=== PATIENT | female | born 1980 | race Hispanic/Latino ===

== ENCOUNTER 2018-03-02 07:52 | Emergency (ER) | payer OTHER ==
[~2018-03-02] VITALS: Ht 157.5 cm; Wt 81.7 kg
[~2018-03-02 07:52] MED LIST: EXPECTA PRENAT1 EACH PO; NORCO 5-325 TA1 EACH PO; TUMS DUAL ACTI1 EACH PO; TYLENOL325 MG PO
[2018-03-02] MEDS ORDERED: NORCO 5-325 TA1 EACH PO (08:23)
[2018-03-02] MEDS ORDERED: IBUPROFEN600 MG PO (08:23)
== END 2018-03-02 08:30 | disposition home or self-care (01) ==
LOC: ED 07:52
DX: S92.252A Displaced fracture of navicular [scaphoid] of left foot, initial encounter for closed fracture (principal); X50.9XXA Other and unspecified overexertion or strenuous movements or postures, initial encounter
CPT/HCPCS: 73630; 99283

== ENCOUNTER 2019-07-01 10:09 | Inpatient (IN) | payer OTHER ==
[~2019-07-01] VITALS: Ht 152.4 cm; Wt 91.4 kg
[~2019-07-01 10:09] MED LIST changes: +IBUPROFEN600 MG PO
--- NOTE | 2019-07-01 14:19 | PR ---
[facility] [address] [facility] [place], [place] [address] Signed Progress Notes IP Datetime Report Generated by CPGabriela: 07/01/2019 14:19 PROGRESS NOTES: [id number] Other Impressions: Hypotensive Episode Other Procedures: IV fluids VITAL SIGNS: [id number] Vital Signs: Reviewed VS Notable Details: elevated BP EXAM: [id number] Dilatation: 2.0 Effacement: 0 Station: -3 Uterine Contractions: every 4-6 minutes, mild MEMBRANES: [id number] Membrane Status: Intact Comments: Patient had hypotensive episode to 88/51, feeling like would pass out, during MagSO4 bolus. MagSO4 stopped, IV bolus given, with patient feeling better and BP now normal Will continue with CYtotec INduction, when stable, but hold MagSO4 for now. Fetus A: [id number] FHR Baseline: 140 Variability: Moderate 6-25bpm Accelerations: 15X15 Decelerations: Variable Presentation: Vertex Fetus B: [id number] Signing Physician: Israel Gore MD Copies: ~ *Electronically Signed* 07/01/19 1419 ISRAEL GORE MD PATIENT NAME: THIERNO CUMMINS PROGRESS NOTE DATE OF : 84 PHYSICIAN: ISRAEL GORE MD RPT #: [id number] REPORT IS CONFIDENTIAL AND NOT TO BE RELEASED WITHOUT AUTHORIZATION
--- NOTE | 2019-07-01 16:48 | PR ---
[facility] [address] [place], [place] [address] Signed Progress Notes IP Datetime Report Generated by CPN: 07/01/2019 16:48 PROGRESS NOTES: [id number] Impression: Gest. HTN/PreEclampsia/Eclampsia Other Impressions: Hypotensive Episode Other Procedures: IV fluids Other Plans: MagSO4 VITAL SIGNS: [id number] Vital Signs: Reviewed; Within Normal Limits VS Notable Details: elevated BP EXAM: [id number] Dilatation: 2.0 Effacement: 0 Station: -3 Uterine Contractions: every 3-5 minutes MEMBRANES: [id number] Membrane Status: Intact Comments: Patient without compmlalint at this time. Discussed with patient; restarting MagSO4 since doubt hypotension was due to Mag and with severe preeclampsia, has increased risk of eclampsia. Questions answered. Watch BP closely Fetus A: [id number] FHR Baseline: 150 Variability: Moderate 6-25bpm Accelerations: 15X15 Decelerations: Variable Presentation: Vertex Fetus B: [id number] Signing Physician: Rosy Gore MD Copies: ~ *Electronically Signed* 07/01/19 1648 ROSY GORE MD PATIENT NAME: THIERNO CUMMINS PROGRESS NOTE DATE OF : 84 PHYSICIAN: ROSY GORE MD RPT #: [id number] REPORT IS CONFIDENTIAL AND NOT TO BE RELEASED WITHOUT AUTHORIZATION
--- NOTE | 2019-07-02 07:14 | PR ---
[facility] [address] [facility] [place], [place] [address] Signed Progress Notes IP Datetime Report Generated by CPGabriela: 07/02/2019 07:14 PROGRESS NOTES: [id number] Impression: Slow Progression of Labor Other Impressions: Hypotensive Episode Other Procedures: IV fluids Plan: Continue present management; Anticipate Vaginal Delivery Other Plans: MagSO4 VITAL SIGNS: [id number] Vital Signs: Reviewed; Within Normal Limits VS Notable Details: elevated BP EXAM: [id number] Dilatation: 3.0 Effacement: 50 Station: -3 Uterine Contractions: every 3-5 minutes MEMBRANES: [id number] Membrane Status: Intact Comments: Cytotec x6 (#6 placed aobut 30 minutes ago), on MagSO4, with some nausea, feeling warm, but otherwise doing well. Plan recheck in couple hours to see if can AROM Fetus A: [id number] FHR Baseline: 145 Variability: Moderate 6-25bpm Accelerations: 15X15 Decelerations: Variable Presentation: Vertex Fetus B: [id number] Signing Physician: Israel Gore MD Copies: ~ *Electronically Signed* 07/02/19 0714 ISRAEL GORE MD PATIENT NAME: THIERNO CUMMINS PROGRESS NOTE DATE OF : 84 PHYSICIAN: ISRAEL GORE MD RPT #: [id number] REPORT IS CONFIDENTIAL AND NOT TO BE RELEASED WITHOUT AUTHORIZATION
--- NOTE | 2019-07-02 09:14 | PR ---
[facility] [place] [facility] [address] [facility] [place], [place] [address] Signed Progress Notes IP Datetime Report Generated by CPN: 07/02/2019 09:14 PROGRESS NOTES: [id number] Impression: Normal progression of labor; Gest. HTN/PreEclampsia/Eclampsia Other Impressions: Hypotensive Episode Procedures: Artificial ROM Other Procedures: IV fluids Plan: Continue present management; Anticipate Vaginal Delivery Other Plans: MagSO4 VITAL SIGNS: [id number] Vital Signs: Reviewed; Within Normal Limits VS Notable Details: elevated BP EXAM: [id number] Dilatation: 4.0 Effacement: 50 Station: -3 Uterine Contractions: every 2-5 minutes MEMBRANES: [id number] Membrane Status: Ruptured Amniotic Fluid Color: Clear ROM Note: AROM with small amount clear fluid Comments: Just beginning to feel contractions, would like Epidural later - ordered. Fetus A: [id number] FHR Baseline: 135 Variability: Moderate 6-25bpm Accelerations: 15X15 Decelerations: Variable Presentation: Vertex Fetus B: [id number] Signing Physician: Rosy Gore MD Copies: ~ *Electronically Signed* 07/02/19 0914 ROSY GORE MD PATIENT NAME: THIERNO CUMMINS PROGRESS NOTE DATE OF : 84 PHYSICIAN: ROSY GORE MD RPT #: [id number] REPORT IS CONFIDENTIAL AND NOT TO BE RELEASED WITHOUT AUTHORIZATION
--- NOTE | 2019-07-02 12:23 | PR ---
[facility] [address] [facility] [place], [place] [address] Signed Progress Notes IP Datetime Report Generated by CPN: 07/02/2019 12:23 PROGRESS NOTES: [id number] Impression: Normal progression of labor Other Impressions: Hypotensive Episode Procedures: Artificial ROM Other Procedures: IV fluids Plan: Continue present management; Anticipate Vaginal Delivery Other Plans: MagSO4 VITAL SIGNS: [id number] Vital Signs: Reviewed; Within Normal Limits VS Notable Details: elevated BP EXAM: [id number] Dilatation: 8.0 Effacement: 90 Station: -3 Uterine Contractions: every 3-5 minutes MEMBRANES: [id number] Membrane Status: Ruptured Amniotic Fluid Color: Clear ROM Note: AROM with small amount clear fluid Comments: Comfortable with Epidural. BP's stable, continuing MagSO4. Continue monitoring Fetus A: [id number] FHR Baseline: 130 Variability: Moderate 6-25bpm Accelerations: 10X10 Decelerations: Early Presentation: Vertex Fetus B: [id number] Signing Physician: Rosy Gore MD Copies: ~ *Electronically Signed* 07/02/19 1223 ROSY GORE MD PATIENT NAME: THIERNO CUMMINS PROGRESS NOTE DATE OF : 84 PHYSICIAN: ROSY GORE MD RPT #: [id number] REPORT IS CONFIDENTIAL AND NOT TO BE RELEASED WITHOUT AUTHORIZATION
--- NOTE | 2019-07-02 14:37 | PR ---
[facility] [address] [facility] [place], [place] [address] Signed Progress Notes IP Datetime Report Generated by CPN: 07/02/2019 14:37 PROGRESS NOTES: [id number] Impression: Normal progression of labor Other Impressions: Hypotensive Episode Procedures: Artificial ROM Other Procedures: IV fluids Plan: Continue present management; Anticipate Vaginal Delivery Other Plans: MagSO4 VITAL SIGNS: [id number] Vital Signs: Reviewed; Within Normal Limits VS Notable Details: elevated BP EXAM: [id number] Dilatation: 10.0 Effacement: 100 Station: 0 Uterine Contractions: every 3-4 minutes MEMBRANES: [id number] Membrane Status: Ruptured Amniotic Fluid Color: Clear ROM Note: AROM with small amount clear fluid Comments: Comfortable with Epidural, will start pushing Fetus A: [id number] FHR Baseline: 135 Variability: Moderate 6-25bpm Accelerations: 10X10 Decelerations: Early Presentation: Vertex Fetus B: [id number] Signing Physician: Israel Gore MD Copies: ~ *Electronically Signed* 07/02/19 1437 ISRAEL GORE MD PATIENT NAME: DOUG CUMMINSLorie NEELY PROGRESS NOTE DATE OF : 84 PHYSICIAN: ISRAEL GORE MD RPT #: [id number] REPORT IS CONFIDENTIAL AND NOT TO BE RELEASED WITHOUT AUTHORIZATION
--- NOTE | 2019-07-02 16:07 | PR ---
[facility] [address] [facility] [place], [place] [address] Signed Progress Notes IP Datetime Report Generated by CPN: 07/02/2019 16:07 PROGRESS NOTES: [id number] Impression: Normal progression of labor Other Impressions: Hypotensive Episode Procedures: Artificial ROM Other Procedures: IV fluids Plan: Continue present management Other Plans: MagSO4 VITAL SIGNS: [id number] Vital Signs: Reviewed; Within Normal Limits VS Notable Details: elevated BP EXAM: [id number] Dilatation: 10.0 Effacement: 100 Station: 0 Uterine Contractions: every 3 minutes MEMBRANES: [id number] Membrane Status: Ruptured Amniotic Fluid Color: Clear ROM Note: AROM with small amount clear fluid Comments: Continuing to push well, but slow progress. Will continue pushing. Fetus A: [id number] FHR Baseline: 135 Variability: Moderate 6-25bpm Accelerations: 15X15 Decelerations: Early Presentation: Vertex Fetus B: [id number] Signing Physician: Rosy Gore MD Copies: ~ *Electronically Signed* 07/02/19 1607 ROSY GORE MD PATIENT NAME: THIERNO CUMMINS CHIN PROGRESS NOTE DATE OF : 84 PHYSICIAN: ROSY GORE MD RPT #: [id number] REPORT IS CONFIDENTIAL AND NOT TO BE RELEASED WITHOUT AUTHORIZATION
--- NOTE | 2019-07-02 18:59 | PR ---
[facility] [address] [place], [place] [address] Signed PP Progress Notes Datetime Report Generated by CPN: 07/02/2019 18:58 SUBJECTIVE: [id number] Pain: Within normal limits Nausea/Vomiting: Denies Vital Signs: [id number] Vital Signs: Reviewed Notable Details: hypotension EXAM: [id number] Cardiovascular: Normal Respiratory: Normal Abdomen/Uterus: Normal Lochia: Normal Vulva/Perineum: Normal Extremities: Normal Exam Comments: Mag Level: 5.7 Hgb/Hct = 10.0/29.4 FS BS = 138 IMPRESSION/PLAN/PROCEDURES: [id number] Other Impression: Hypotension Progress Notes: 2 hr PP, patient had feeling of cold then warm, then felt like would pass out. No chest pain, no shortness of breath, vaginal bleeding has been normal. BP high temporarily then dropped, with normal pulse. No loss of consciousness. Rapid Response Team called: MagSO4 stopped, Bolus of IV fluids given, IV Ephedrin given with patient beginning to feel better and BP slowly rising to normal levels and continued normal pulse. Will stop MagSO4 and watch BP. Continue IV fluid, add 20 units Pitocin to 1000 ml. SCD's and Abdominal binder. Discussed with patient; explained risks vs benefits of MagSO4, feel not Signing Physician: Rosy Gore MD Copies: ~ *Electronically Signed* 07/02/19 3117 ROSY GORE MD PATIENT NAME: THIERNO CUMMINS PROGRESS NOTE DATE OF : 84 PHYSICIAN: ROSY GORE MD RPT #: [id number] REPORT IS CONFIDENTIAL AND NOT TO BE RELEASED WITHOUT AUTHORIZATION
--- NOTE | 2019-07-02 21:44 | EKG ---
[facility] [address] [facility] [place], [place] [address] Signed Normal sinus rhythm Normal ECG No previous ECGs available Confirmed by CHRISTA SRINIVASAN DO ([id number]) on 07/02/2019 9:44:50 PM Electronically Signed By: CHRISTA SRINIVASAN DO 07/02/19 2144 PATIENT NAME: THIERNO CUMMINS Electrocardiogram DATE OF : 84 PHYSICIAN: CHRISTA SRINIVASAN DO REPORT #: [id number] REPORT IS CONFIDENTIAL AND NOT TO BE RELEASED WITHOUT AUTHORIZATION
--- NOTE | 2019-07-02 22:38 | PR ---
[facility] [address] [facility] [place], [place] [address] Signed PP Progress Notes Datetime Report Generated by CPN: 07/02/2019 22:38 SUBJECTIVE: [id number] Pain: Within normal limits Nausea/Vomiting: Denies Vital Signs: [id number] Vital Signs: Reviewed Notable Details: T = 101.7 BP 140-160's /80-90's EXAM: [id number] Cardiovascular: Normal Respiratory: Normal Abdomen/Uterus: Normal Lochia: Normal Vulva/Perineum: Normal Extremities: Normal Exam Comments: Mag Level: 5.7 Hgb/Hct = 10.0/29.4 FS BS = 138 good urine output IMPRESSION/PLAN/PROCEDURES: [id number] Other Impression: PP Fever, ? Endometritis Plan: Antibiotic therapy Other Plans: Gentamycin _ Clindamycin IV Progress Notes: Feeling better, but now elevated temp, but no increased abdominal pain, shortness of breath, cough, calf tenderness, foul smelling discharge. Urine for C_S Will start antibiotics and oral Labetalol, continue monitoring Signing Physician: Rosy Gore MD Copies: ~ *Electronically Signed* 07/02/19 8742 ROSY GORE MD PATIENT NAME: THIERNO CUMMINS PROGRESS NOTE DATE OF : 84 PHYSICIAN: ROSY GORE MD RPT #: [id number] REPORT IS CONFIDENTIAL AND NOT TO BE RELEASED WITHOUT AUTHORIZATION
--- NOTE | 2019-07-03 07:32 | PR ---
[facility] [address] [place] [facility] [place] [address] Signed PP Progress Notes Datetime Report Generated by CPGabriela: 07/03/2019 07:32 SUBJECTIVE: [id number] Pain: Within normal limits Nausea/Vomiting: Denies Vital Signs: [id number] Vital Signs: Reviewed; Within Normal Limits Notable Details: T = 101.7 BP 140-160's /80-90's EXAM: [id number] Cardiovascular: Normal Respiratory: Normal Abdomen/Uterus: Normal Lochia: Normal Vulva/Perineum: Normal Extremities: Normal Exam Comments: Mag Level: 5.7 Hgb/Hct = 10.0/29.4 FS BS = 138 good urine output IMPRESSION/PLAN/PROCEDURES: [id number] Other Impression: PP Fever, ? Endometritis Plan: Continue present management; Antibiotic therapy Other Plans: Labetalol 100 mg po BID Progress Notes: Urine output down to 20, 25 ml/hour earlier this am, given 20 mg Lasix x1; now good urine output. Without complaint; no SOB, breast tenderness, abdominal tenderness, normal lochia. Will continue watching urine output, temp, and BP, plan to increase activity later today if remains stable Signing Physician: Israel Gore MD Copies: ~ *Electronically Signed* 07/03/19 0732 ISRAEL GORE MD PATIENT NAME: THIERNO CUMMINS PROGRESS NOTE DATE OF : 84 PHYSICIAN: ISRAEL GORE MD RPT #: [id number] REPORT IS CONFIDENTIAL AND NOT TO BE RELEASED WITHOUT AUTHORIZATION
--- NOTE | 2019-07-04 13:31 | PR ---
[facility] [address] [facility] [place], [place] [address] Signed PP Progress Notes Datetime Report Generated by CPN: 07/04/2019 13:31 SUBJECTIVE: [id number] Pain: Within normal limits Nausea/Vomiting: Denies Vital Signs: [id number] Vital Signs: Reviewed Notable Details: Temp to 101.6 EXAM: [id number] Cardiovascular: Normal Respiratory: Normal Abdomen/Uterus: Normal Lochia: Normal Vulva/Perineum: Normal CVA Tenderness: Normal Extremities: Normal Exam Comments: slight decrease breath sounds bilateral lower lungs, no wheezes or rhales IMPRESSION/PLAN/PROCEDURES: [id number] Other Impression: PP Fever Plan: Continue present management; Antibiotic therapy Other Plans: Labetalol 100 mg po BID Progress Notes: No SOB, no chest, abdominal, or back pain, normal lochia. Has been on antibiotics for about 36 hours (Gentamycin and Clindamycin). Will get Blood cultures, CBC, _ CXR. Consider anticoagualtion for Septic vein thrombophlebitis, if continue spiking fever. Signing Physician: Rosy Gore MD Copies: ~ *Electronically Signed* 07/04/19 7084 ROSY GORE MD PATIENT NAME: THIERNO CUMMINS PROGRESS NOTE DATE OF : 84 PHYSICIAN: ROSY GORE MD RPT #: [id number] REPORT IS CONFIDENTIAL AND NOT TO BE RELEASED WITHOUT AUTHORIZATION
--- NOTE | 2019-07-04 16:10 | PR ---
[facility] [address] [place] [place], [place] [address] Signed PP Progress Notes Datetime Report Generated by CPN: 07/04/2019 16:10 SUBJECTIVE: [id number] Pain: Within normal limits Nausea/Vomiting: Denies Vital Signs: A0663071 Vital Signs: Reviewed Notable Details: Temp 100.2 EXAM: [id number] Cardiovascular: Normal Respiratory: Normal Abdomen/Uterus: Normal Lochia: Normal Vulva/Perineum: Normal CVA Tenderness: Normal Extremities: Normal Exam Comments: slight decrease breath sounds bilateral lower lungs, no wheezes or rhales IMPRESSION/PLAN/PROCEDURES: [id number] Other Impression: Fever, Possible pneumonia Plan: Antibiotic therapy Other Plans: Doxycycline Progress Notes: Very mild cough, no shortness of breath Normal WBC's, no growth on urine C_S. CXR shows possible pneumonia. -> will add Doxycycline 100 mg po BID, to cover atypical pneumonia; if not helping then will start Lovenox Discussed plan with patient Signing Physician: Rosy Gore MD Copies: ~ *Electronically Signed* 07/04/19 7405 ROSY GORE MD PATIENT NAME: THIERNO CUMMINS PROGRESS NOTE DATE OF : 84 PHYSICIAN: ROSY GORE MD RPT #: [id number] REPORT IS CONFIDENTIAL AND NOT TO BE RELEASED WITHOUT AUTHORIZATION
--- NOTE | 2019-07-06 10:31 | PR ---
[facility] [address] [facility] [place], [place] [address] Signed PP Progress Notes Datetime Report Generated by CPN: 07/06/2019 10:30 SUBJECTIVE: [id number] Pain: Within normal limits Nausea/Vomiting: Denies Vital Signs: [id number] Vital Signs: Reviewed; Within Normal Limits Notable Details: Max temp 100.1 degrees F EXAM: [id number] Cardiovascular: Normal Respiratory: Normal Abdomen/Uterus: Normal Lochia: Normal Vulva/Perineum: Normal CVA Tenderness: Normal Extremities: Normal Exam Comments: good breath sounds throughout IMPRESSION/PLAN/PROCEDURES: [id number] Other Impression: Septic Pelvic Thrombophlebitis Plan: Continue present management Other Plans: Lovenox and antibiotics Procedures: None Progress Notes: Without complaint, cough improving. Will continue plan, hopefully home tomorrow Signing Physician: Rosy Gore MD Copies: ~ *Electronically Signed* 07/06/19 1030 ROSY GORE MD PATIENT NAME: THIENRO CUMMINS PROGRESS NOTE DATE OF : 84 PHYSICIAN: ROSY GORE MD RPT #: [id number] REPORT IS CONFIDENTIAL AND NOT TO BE RELEASED WITHOUT AUTHORIZATION
--- NOTE | 2019-07-07 08:15 | PR ---
[facility] [address] [facility] [place], [place] [address] Signed PP Progress Notes Datetime Report Generated by CPN: 07/07/2019 08:15 SUBJECTIVE: [id number] Pain: Within normal limits Nausea/Vomiting: Denies Vital Signs: [id number] Vital Signs: Reviewed; Within Normal Limits Notable Details: afebrile for >48 hours EXAM: [id number] Cardiovascular: Normal Respiratory: Normal Abdomen/Uterus: Normal Lochia: Normal Vulva/Perineum: Normal CVA Tenderness: Normal Extremities: Normal Exam Comments: good breath sounds throughout IMPRESSION/PLAN/PROCEDURES: [id number] Other Impression: Preeclampsia with Severe Features,Septic Pelvic Thrombophlebitis Plan: Discharge Other Plans: Lovenox and antibiotics Procedures: None Progress Notes: Doing well, without complaint, minimal cough, no shortness of breath, feels like breathing better, ready to go home. Signing Physician: Rosy Gore MD Copies: ~ *Electronically Signed* 07/07/19 0815 ROSY GORE MD PATIENT NAME: THIERNO CUMMINS PROGRESS NOTE DATE OF : 84 PHYSICIAN: ROSY GORE MD RPT #: [id number] REPORT IS CONFIDENTIAL AND NOT TO BE RELEASED WITHOUT AUTHORIZATION
== END 2019-07-07 10:25 | disposition home or self-care (01) | DRG 807 ==
LOC: US 10:09 → FBC 11:56
PROVIDERS: ADMIT General Practice
PROC: 3E0P7VZ Introduction of Hormone into Female Reproductive, Via Natural or Artificial Opening (ICD-10-PCS; 2019-07-01)
PROC: 10E0XZZ Delivery of Products of Conception, External Approach (ICD-10-PCS; principal; 2019-07-02)
PROC: 0HQ9XZZ Repair Perineum Skin, External Approach (ICD-10-PCS; 2019-07-02)
PROC: 10907ZC Drainage of Amniotic Fluid, Therapeutic from Products of Conception, Via Natural or Artificial Opening (ICD-10-PCS; 2019-07-02)
PROC: 00HU33Z Insertion of Infusion Device into Spinal Canal, Percutaneous Approach (ICD-10-PCS; 2019-07-02)
PROC: 3E0R3BZ Introduction of Anesthetic Agent into Spinal Canal, Percutaneous Approach (ICD-10-PCS; 2019-07-02)
DX: O14.14 Severe pre-eclampsia complicating childbirth (principal); Z37.0 Single live birth; Z3A.36 36 weeks gestation of pregnancy; O99.43 Diseases of the circulatory system complicating the puerperium; I95.9 Hypotension, unspecified; O76 Abnormality in fetal heart rate and rhythm complicating labor and delivery; O70.0 First degree perineal laceration during delivery; O60.13X0 Preterm labor second trimester with preterm delivery third trimester, not applicable or unspecified; O24.424 Gestational diabetes mellitus in childbirth, insulin controlled; O86.81 Puerperal septic thrombophlebitis; Z79.82 Long term (current) use of aspirin
CPT/HCPCS: 36415; 59025; 71046; 76819; 82565; 82570; 82947; 83605; 83735; 84156; 84450; 84520; 84550; 85025; 85027; 87088; 93005; 93010; 99214; J1580; J1940; J2590; J2795; J3475; J3490; J7120